=== PATIENT | female | born 1955 | race Caucasian/White ===

== ENCOUNTER 2016-08-05 12:21 | Emergency (ER) | payer SELFPAY ==
[~2016-08-05] VITALS: Ht 157.5 cm; Wt 58.2 kg
[2016-08-05 12:23] VITALS: Ht 157.5 cm; Wt 58.2 kg
--- OUTSIDE RECORDS SUMMARY | 2016-08-05 12:25 | XMS REPORT | Referral Summary ---
Author Author [facility] Organization [facility] Address Unknown Phone Unavailable Care Team Providers Care Fur Blowing Machine Operator Name Role Phone Darleen Guerrero Primary Care Physician [phone] Encounter VC Date(s): 05/31/15 - 05/31/15 [facility] [address] [place] [id number] Discharge Diagnosis: Acute bronchitis Discharge Disposition: 01-Home or Self Care Attending Physician: Karla Gaines PA-C Admitting Physician: Karla Gaines PA-C Vital Signs Most recent to 1 oldest [Reference Range]: Temperature Tympanic 36.0 degC [36.6-38.1 degC] *LOW* (05/31/15 8:56 AM) Peripheral Pulse 84 bpm Rate [60-100 bpm] (05/31/15 8:56 AM) Respiratory Rate 20 br/min [14-20 br/min] (05/31/15 8:56 AM) Blood Pressure 140/86 mmHg [90-140/60-90 mmHg] (05/31/15 8:56 AM) Problem List Condition Effective Dates Status Health Status Informant Dental Active caries(Confirmed) Allergies, Adverse Reactions, Alerts No Known Allergies Medications predniSONE 20 mg oral tablet 40 mg 2 tabs, Oral, Daily, X 5 days, # 10 tabs, 0 Refill(s), Pharmacy: [facility] #[id number], 2 tabs Oral Daily,x5 days Start Date: 05/31/15 Stop Date: 06/05/15 Status: Ordered Robitussin DM To Go mL, Oral, q4hr, 0 Refill(s) Start Date: 05/31/15 Status: Ordered Zithromax Z-Aldair 250 mg oral tablet 1 packets, Oral, Daily, as directed on package labeling, X 5 days, # 6 tabs, 0 Refill(s), Pharmacy: [facility] #[id number], 1 packets Oral Daily,x5 days, Instr:as directed on package labeling Start Date: 05/31/15 Stop Date: 06/05/15 Status: Ordered Results No data available for this section Immunizations Vaccine Date Refusal Reason influenza virus vaccine, inactivated1 02/17/14 1Location History: See scanned document Procedures No data available for this section Social History Social History Type Response Smoking Status Current every day smoker; Type: Cigarettes; Tobacco use per day: Less than Pack Assessment and Plan Extracted from: Title: Ambulatory Patient Education Author: Karla Gaines PA-C Date : 05/31/15 Family Medicine Acute Bronchitis Bronchitis is inflammation of the airways that extend from the windpipe into the lungs (bronchi). The inflammation often causes mucus to develop. This leads to a cough, which is the most common symptom of bronchitis. In acute bronchitis, the condition usually develops suddenly and goes away over time, usually in a couple weeks. Smoking, allergies, and asthma can make bronchitis worse. Repeated episodes of bronchitis may cause further lung problems. CAUSES Acute bronchitis is most often caused by the same virus that causes a cold. The virus can spread from person to person (contagious) through coughing, sneezing, and touching contaminated objects. SIGNS AND SYMPTOMS Cough. Fever. Coughing up mucus. Body aches. Chest congestion. Chills. Shortness of breath. Sore throat. DIAGNOSIS Acute bronchitis is usually diagnosed through a physical exam. Your health care provider will also ask you questions about your medical history. Tests, such as chest X-rays, are sometimes done to rule out other conditions. TREATMENT Acute bronchitis usually goes away in a couple weeks. Oftentimes, no medical treatment is necessary. Medicines are sometimes given for relief of fever or cough. Antibiotic medicines are usually not needed but may be prescribed in certain situations. In some cases, an inhaler may be recommended to help reduce shortness of breath and control the cough. A cool mist vaporizer may also be used to help thin bronchial secretions and make it easier to clear the chest. HOME CARE INSTRUCTIONS Get plenty of rest. Drink enough fluids to keep your urine clear or pale yellow (unless you have a medical condition that requires fluid restriction). Increasing fluids may help thin your respiratory secretions (sputum) and reduce chest congestion, and it will prevent dehydration. Take medicines only as directed by your health care provider. If you were prescribed an antibiotic medicine, finish it all even if you start to feel better. Avoid smoking and secondhand smoke. Exposure to cigarette smoke or irritating chemicals will make bronchitis worse. If you are a smoker, consider using nicotine gum or skin patches to help control withdrawal symptoms. Quitting smoking will help your lungs heal faster. Reduce the chances of another bout of acute bronchitis by washing your hands frequently, avoiding people with cold symptoms, and trying not to touch your hands to your mouth, nose, or eyes. Keep all follow-up visits as directed by your health care provider. SEEK MEDICAL CARE IF: Your symptoms do not improve after 1 week of treatment. SEEK IMMEDIATE MEDICAL CARE IF: You develop an increased fever or chills. You have chest pain. You have severe shortness of breath. You have bloody sputum. You develop dehydration. You faint or repeatedly feel like you are going to pass out. You develop repeated vomiting. You develop a severe headache. MAKE SURE YOU: Understand these instructions. Will watch your condition. Will get help right away if you are not doing well or get worse. Document Released: 06/07/2005 Document Revised: 09/14/2014 Document Reviewed: [facility] [place] Patient Information 2015 [employer]. This information is not intended to replace advice given to you by your health care provider. Make sure you discuss any questions you have with your health care provider. No follow up information was provided. Extracted from: Title: Office Visit Note- URI Author: Karla Gaines PA-C Date: 05/31 Assessment/Plan Acute bronchitis Pt has no insurance, and would like to try and defer CXR today. Will treat as possible pneumonia. Pt given Rocephin 1G IM in clinic today , and will continue with Z-aldair and prednisone x 5 days. Has nebulizer at home, and will do Albuterol treatments 2-3 times per day routinely until SOA improved. She is to call the clinic if not improving. Declined cough Rx, and states the [facility] is working for her at this time. Ordered: Office Visit Level 3 Est 91730 Orders: azithromycin, 1 packets, Oral, Daily, as directed on package labeling , X 5 days, # 6 tabs, 0 Refill(s), Pharmacy: [facility] #[id number], 1 packets Oral Daily,x5 days,Instr:as directed on package labeling predniSONE, 40 mg 2 tabs, Oral, Daily, X 5 days, # 10 tabs, 0 Refill(s), Pharmacy: [facility] #[id number], 2 tabs Oral Daily,x5 days
--- OUTSIDE RECORDS SUMMARY | 2016-08-05 12:25 | XMS REPORT | Referral Summary ---
Author Author [facility] Organization [facility] Address Unknown Phone Unavailable Care Team Providers Care Central Control Room Operator Name Role Phone Darleen Guerrero Primary Care Physician [phone] Encounter VC Date(s): 06/21/16 - 06/21/16 [facility] [address] [place] [id number] Discharge Diagnosis: Anxiety associated with depression Discharge Disposition: 01-Home or Self Care Attending Physician: Chay Guerrero MD Admitting Physician: Chay Guerrero MD Vital Signs Most recent to 1 oldest [Reference Range]: Temperature Tympanic 36.2 degC [36.6-38.1 degC] *LOW* (06/21/16 11:41 AM) Blood Pressure 134/90 mmHg [90-140/60-90 mmHg] (06/21/16 11:41 AM) Problem List Condition Effective Dates Status Health Status Informant Asthma(Confirmed) Active Fractured R Active Wrist(Confirmed) High Active Cholesterol(Confirme d) Cervical 1989 Active Cancer(Confirmed) Dental Active caries(Confirmed) Psoriasis(Confirmed) Active Arthritis-Rheu(Confi Active rmed) Chicken Active Pox(Confirmed) Allergies, Adverse Reactions, Alerts No Known Allergies Medications CeleXA 20 mg oral tablet 20 mg 1 tabs, Oral, Daily, # 90 tabs, 1 Refill(s), Pharmacy: [facility] # [id number], 1 tabs Oral Daily Start Date: 06/21/16 Status: Ordered IBU 800 mg oral tablet 800 mg 1 tabs, Oral, Daily, 0 Refill(s) Start Date: 06/21/16 Status: Ordered Results No data available for this section Immunizations Given and Recorded Vaccine Date Status Refusal Reason influenza virus vaccine, inactivated1 02/17/14 Recorded 1Location History: See scanned document Procedures Procedure Date Related Diagnosis Body Site Oophorectomy 1993 Appendectomy1 1989 Hysterectomy 1989 1incidential with the hystorectomy. See Conversion Document. Social History Social History Type Response Smoking Status Current every day smoker; Type: Cigarettes; Tobacco use per day: Less than Pack Assessment and Plan Extracted from: Title: Ambulatory Patient Education Author: Chay Guerrero MD Date: 06/21 Family Medicine Depression, Adult Depression is feeling sad, low, down in the dumps, blue, gloomy, or empty. In general, there are two kinds of depression: Normal sadness or grief. This can happen after something upsetting. It often goes away on its own within 2 weeks. After losing a loved one (bereavement ), normal sadness and grief may last longer than two weeks. It usually gets better with time. Clinical depression. This kind lasts longer than normal sadness or grief. It keeps you from doing the things you normally do in life. It is often hard to function at home, work, or at school. It may affect your relationships with others. Treatment is often needed. GET HELP RIGHT AWAY IF: You have thoughts about hurting yourself or others. You lose touch with reality (psychotic symptoms). You may: See or hear things that are not real. Have untrue beliefs about your life or people around you. Your medicine is giving you problems. MAKE SURE YOU: Understand these instructions. Will watch your condition. Will get help right away if you are not doing well or get worse. This information is not intended to replace advice given to you by your health care provider. Make sure you discuss any questions you have with your health care provider. Document Released: 06/02/2011 Document Revised: 05/21/2015 Document Reviewed: [employer] Patient Education 2016 [employer] No follow up information was provided. Extracted from: Title: Office Visit Note Author: Chay Guerrero MD Date: 06/21/16 Assessment/Plan 1.Anxiety associated with depression Rx for Celexa 20mg daily and will follow up in 1 month.
[2016-08-05] MEDS ORDERED: CITA40TA14 PO (13:02)
--- NOTE | 2016-08-05 13:02 | ERPDOC ---
Departure Disposition Decision Date: Aug 05, 2016 Disposition Decision Time: 17:02 (SATISH CRUZ APRN) Disposition: 01 DISCHARGED HOME, SELF-CARE Impression Impression (SATISH CRUZ APRN) Impression: Primary Impression: Colitis Additional Impression: Volume depletion Severity: Moderate (SATISH CRUZ APRN) Condition: Improved Seen By: Mid-level only (SATISH CRUZ APRN) Referrals: [facility] Patient Instructions: Colitis (ED) Problems/Meds/Labs Reviewed?: Yes Medications reviewed and manag: Yes (SATISH CRUZ APRN) Additional Instructions: Your CT scan indicated you have a colitis, please see discharge packet. Take Cipro 500 mg twice daily for 7 days. Take metronidazole 500 mg every 8 hours for the next 7 days. You may take Compazine 10 mg every 6 hours as needed for nausea and vomiting. This medication may cause drowsiness so avoid driving or operating heavy machinery or drinking alcohol while taking. Stay well hydrated drink plenty of fluids especially water. Eat foods high in potassium such as bananas, potatoes and spinach. Follow with a PCP of your choice if your symptoms are not improving in the next week. I would suggest trying [facility] said she do not have insurance. Follow up care ordered?: Yes Mental Status: Alert, Oriented (SATISH CRUZ APRN) Scripts Prochlorperazine Maleate (Compazine) 10 Mg Tablet 10 MG PO QID for 7 Days, #28 TAB Take 1 tablet, by mouth, 4 times a day. Prov: SATISH CRUZ APRN 08/05/16 Metronidazole (Metronidazole) 500 Mg Tablet 500 MG PO Q8H for 7 Days, #21 TAB Prov: SATISH CRUZ APRN 08/05/16 Ciprofloxacin HCl (Ciprofloxacin HCl) 500 Mg Tablet 1 TAB PO Q12H for 7 Days, #14 TAB Prov: SATISH CRUZ APRN 08/05/16 HPI - Abdominal Pain General Chief Complaint: Nausea,Vomiting,Diarrhea Stated Complaint: R SIDE ABD PAIN, WEAKNESS, AND VOMITING Time Seen by Provider: 13:00 Source: patient (SATISH CRUZ APRN) Time Seen by Provider: 13:00 (TRISH GASTELUM DO) HPI - Abdominal Pain Initial Comments 61 YO F presents to ED with report of having intermittent nausea, vomiting and diarrhea for past 2-3 weeks. Has not seen anyone because she does not have insurance. Says that generalized abdominal pain has increased over the last 2 days. Patient denies any known sick contacts. States she has never had similar pain. Pain is not exacerbated by eating or movement. Pain Scale: Now: 9/10 Quality: aching, cramping Location: generalized abdomen Associated Symptoms: nausea/vomiting, weakness (generalized), DENIES: back pain , chest pain, diaphoresis, fatigue, fever/chills, headache, heartburn, rash, shortness of breath, swelling/mass in abdomen, syncope (SATISH CRUZ LINING MACHINE TENDER) Allergies: Coded Allergies: No Known Allergies (Unverified , 08/05/16) Past History Past Medical History Metabolic: DENIES: diabetes Cardiac: DENIES: angina Respiratory: DENIES: asthma GI: DENIES: ulcers Female: DENIES: renal insufficiency Neurological: DENIES: seizures Musculoskeletal: DENIES: back pain Psychological: depression (SATISH CRUZ LINING MACHINE TENDER) Surgical History Reproductive/: hysterectomy (SATISH CRUZ APRN) Family History Family PMH: FOUND: other (noncontributory) (SATISH CRUZ APRN) Social History Smoking Status: Current every day smoker (1/2 PPD) Marital Status: Sexuality: male partner (SATISH CRUZ APRN) Review of Systems Constitutional Constitutional: weakness (generalized), DENIES: chills, dizziness, fever ( SATISH CRUZ LINING MACHINE TENDER) Eyes General: DENIES: erythema, exudate Lids/Accessories: DENIES: erythema, swelling (SATISH CRUZ LINING MACHINE TENDER) ENMT Ears: DENIES: pain Hearing: DENIES: hearing loss Sinuses: DENIES: congestion, rhinorrhea Mouth/Throat: DENIES: sore throat (KHALIF CRUZS A LINING MACHINE TENDER) Cardiovascular Cardiac: DENIES: chest pain, murmur Rhythm/Rate: DENIES: palpitations (SATISH CRUZ A LINING MACHINE TENDER) Pulmonary Respiratory: DENIES: cough, dyspnea (SATISH CRUZ A LINING MACHINE TENDER) GI Upper Abdomen: nausea, pain, vomiting Lower Abdomen: diarrhea, pain, DENIES: blood in stool (SATISH CRUZ A LINING MACHINE TENDER) General: DENIES: dysuria, pain (SATISH CRUZ LINING MACHINE TENDER) Musculoskeletal General: DENIES: joint pain, pain, tenderness (CRUZ,SATISH A LINING MACHINE TENDER) Integumentary Skin: DENIES: color change, itching, rash (KHALIF CRUZS A LINING MACHINE TENDER) Neurological General: DENIES: ataxia, change in strength, numbness, paralysis/paresis, weakness (KHALIF CRUZS A LINING MACHINE TENDER) Psychiatric Psychiatric: depression, DENIES: anxiety, nervousness (KHALIF CRUZS A LINING MACHINE TENDER) Physical Exam General General Nourishment: well nourished, well developed, adult General Body Habitus: well groomed (KHALIF CRUZS A LINING MACHINE TENDER) Vitals and Pain First Documented Vital Signs Date Time Temp Pulse Resp B/P Pulse Ox O2 Delivery O2 Flow Rate FiO2 08/05/16 12:23 98.0 96 18 135/65 99 Room Air (TRISH GASTELUM DO) Vitals and Pain Weight: Kilograms: 58.200 Height (feet): 5 Height (inches): 2.00 Triage Pain Scale: (KHALIF CRUZS A LINING MACHINE TENDER) Eyes (brief) Eyes Brief: found: EOMI, PERRL (KHALIF CRUZS A LINING MACHINE TENDER) ENMT (brief) ENMT Brief: FOUND: TM clear, TM good light reflex, mucosa moist, NOT FOUND: nasal exudate, nasal swelling, pharnyx erythema (KHALIF CRUZS A LINING MACHINE TENDER) Neck (brief) Neck: FOUND: trachea midline, NOT FOUND: adenopathy, spasm, tenderness, thyromegaly (CRUZSATISH A LINING MACHINE TENDER) Respiratory (brief) Respiratory: FOUND: clear all schwab, equal bilaterally, symmetrical (CRUZ, SATISH A LINING MACHINE TENDER) Cardiovascular (brief) Cardiac: FOUND: regular rate, regular rhythm (NANCYSATISH A LINING MACHINE TENDER) Abdomen Inspection: NOT FOUND: distention Palpation: FOUND: soft, tender (mild diffuse TTP), NOT FOUND: McBurney's point tender, Psoas sign, Rosving's sign, hepatomegaly, involuntary guarding, splenomegaly, voluntary guarding Auscultation: FOUND: normoactive (x4) (KHALIF CRUZS A LINING MACHINE TENDER) Musculoskeletal (brief) Musculoskeletal Brief: NOT FOUND: deformity, tenderness (CRUZSATISH A LINING MACHINE TENDER) Integumentary (brief) Integumentary Brief: FOUND: dry, pink, warm (CRUZKHALIFS A LINING MACHINE TENDER) Neurologic (brief) Neurological Brief: FOUND: CN w/o gross def to obs, motor-no gross deficits, sensory-no gross deficits (SATISH CRUZ APRN) Psychiatric (brief) Psychiatric Brief: FOUND: alert, normal affect, oriented (SATISH CRUZ APRN ) Differential Diagnoses Considering: C-Difficule Colitis, Dehydration, Food Poisoning, Gastroenteritis , Hypokalemia, Pancreatitis, Viral Syndrome (SATISH CRUZ APRN) Progress Results/Orders Orders Procedure Category Date Status Time Iv Lock (Ed Only) EDM 08/05/16 Transmitted 13:12 Nothing By Mouth (Ed EDM 08/05/16 Transmitted Only) 13:12 Cbc W/Auto LAB 08/05/16 Complete Diff-Reflex Manual 13:12 Cmp - Comprehensive LAB 08/05/16 Complete Metabolic 13:12 Lipase LAB 08/05/16 Complete 13:12 Prochlorperazine PHA 08/05/16 Complete (Compazine) 13:15 Normal Saline (Normal PHA 08/05/16 Complete Saline Iv) 13:15 Ct Abd/Pelvis CT 08/05/16 Resulted W/Contrast Only Lactate - Lactic Acid LAB 08/05/16 Complete Procalcitonin LAB 08/05/16 Complete Blood Culture TYLER 08/05/16 In Process Normal Saline (Normal PHA 08/05/16 Complete Saline Iv) 14:15 UA, LAB 08/05/16 Complete Dip&Micro(Complete) & 14:22 Iohexol (Omnipaque) PHA 08/05/16 Complete 14:29 Normal Saline (Ns) PHA 08/05/16 Complete 14:29 Saline Flush (Iv PHA 08/05/16 Complete Flush) 14:29 Hydromorphone PHA 08/05/16 Complete (Dilaudid) 15:00 (TRISH GASTELUM DO) Lab Results Laboratory Tests Test 08/05/16 13:33 08/05/16 14:22 08/05/16 14:52 White Blood Count 17.2T/MM3 Red Blood Count 4.16M/MM3 Hemoglobin 12.6GM/DL Hematocrit 36.2% Mean Corpuscular Volume 87.0UM3 Mean Corpuscular Hemoglobin 30.3UUG Mean Corpuscular Hemoglobin Concent 34.8GM/DL RDW Standard Deviation 41.0FL Platelet Count 377T/MM3 Mean Platelet Volume 10.1UM3 Immature Granulocyte % (Auto) % Neutrophils (%) (Auto) % Lymphocytes (%) (Auto) % Monocytes (%) (Auto) % Eosinophils (%) (Auto) % Basophils (%) (Auto) % Absolute Immature Granulocyte (auto T/MM3 Absolute Neutrophils (auto) T/MM3 Absolute Lymphocytes (auto) T/MM3 Absolute Monocytes (auto) T/MM3 Absolute Eosinophils (auto) T/MM3 Absolute Basophils (auto) T/MM3 Neutrophils % (Manual) 88.0% Band Neutrophils % 9.0% Lymphocytes % (Manual) 3.0% Absolute Neutrophils (Manual) 15.1T/MM3 Band Neutrophils # 1.5T/MM3 Lymphocytes # (Manual) 0.5T/MM3 Red Cell Morphology Comment Normal Turbidity < 20 Sodium Level 133MEQ/L Potassium Level 4.2MEQ/L Chloride Level 102MEQ/L Carbon Dioxide Level 17MEQ/L Anion Gap 14MEQ/L Blood Urea Nitrogen 20.0MG/DL Creatinine 0.8MG/DL Glomerular Filtration Rate Calc 73 BUN/Creatinine Ratio 25RATIO Glucose Level 213MG/DL Calculated Osmolality 265MOSM/KG Calcium Level 9.1MG/DL Total Bilirubin 0.90MG/DL Icterus Index < 2 Aspartate Amino Transf (AST/SGOT) 20U/L Alanine Aminotransferase (ALT/SGPT) 23U/L Alkaline Phosphatase 112U/L Total Protein 6.6G/DL Albumin 3.4G/DL Globulin 3.2G/DL Albumin/Globulin Ratio 1.1RATIO Lipase 65U/L Chemistry Specimen Hemolysis < 15 Urine Collection Type Voided-not cc-midstr Urine Color Yellow Urine Turbidity Clear Urine pH 5.5 Urine Specific [place] <=1.005 Urine Protein Negative Urine Glucose (UA) Negative Urine Ketones 2+ Urine Blood Trace-intact Urine Nitrite Negative Urine Bilirubin Negative Urine Urobilinogen 0.2EU/DL Urine Leukocyte Esterase 1+ Urine RBC None seen/HPF Urine WBC 1-3/HPF Urine Squamous Epithelial Cells 5-10 Urine Bacteria Trace Urine Culture Indicated Cult not indicated Plasma Lactate 0.8MMOL/L Procalcitonin 0.11NG/ML (TRISH GASTELUM DO) Medications Current ED Medications Prochlorperazine Edisylate 10 mg 10 mg O ONCE IV Last administered on t 13:28; Start 08/05/16 at 13:15; Stop 3/25/17 at 13:16; Status DC Sodium Chloride 1,000 ml @ 0 mls/hr Q0M ONCE IV Last administered on 13:28; Start 08/05/16 at 13:15; Stop 08/05/16 at 13:16; Status DC Sodium Chloride (Normal Saline IV) 1,000 ml @ 500 mls/hr Q2H ONCE IV Last administered on 08/05/16 14:31; Start 08/05/16 at 14:15; Stop 08/05/16 at 16:14 ; Status DC Iohexol 1 bottle 1 bottle STK-MED ONCE .ROUTE ; Start 08/05/16 at 14:29; Stop at 14:30; Status DC Sodium Chloride (NS) 100 ml @ As Directed STK-MED ONCE .ROUTE ; Start 08/05/16 at 14:29; Stop 08/05/16 at 14:30; Status DC Sodium Chloride (Iv Flush) 10 ml STK-MED ONCE .ROUTE ; Start 08/05/16 at 14:29; Stop 08/05/16 at 14:30; Status DC Hydromorphone HCl (Dilaudid) 0.5 mg O ONCE IV Last administered on 08/05/16 16:14; Start 08/05/16 at 15:00; Stop 08/05/16 at 15:01; Status DC (TRISH GASTELUM DO) Progress Progress Patient has improvement of pain from 9/10 to 5/10 with IV compazine. WBC 17.2 (no bandemia) K 4.2 Co2 17, BUN 20 with 2+ ketones in urine consistent with dehydration Lipase WNL Lactate 0.8 Procal 0.11 Patient is feeling much better after fluids and dialudid. I discussed labs and CT results with patient (including incidental findings), and answered question. Patient states she wants to go home. Does not want to be admitted to the hospital. Patient verbalized understanding of treatment plan, follow up with PCP and return precautions. (SATISH CRUZ APRN) CT CT : CT: Abd/Pelvis IV contrast (coliitis, right renal cyst, adrenal nodule and cystic lesion on spleen) Interpretation: Abnormal, Faxed Report (SATISH CRUZ APRN) SATISH CRUZ APRN Aug 05, 2016 13:02 TRISH GASTELUM DO Aug 09, 2016 06:42
--- NOTE | 2016-08-05 13:08 | NUR ---
PROVIDER Brenda CRUZ APRN AT BEDSIDE.
[2016-08-05] MEDS ORDERED: PROCHLORPERAZINE 10mg/2ml INJECTION IV ONE (13:15)
[2016-08-05] MEDS ORDERED: NORMAL SALINE 1,000 ML IV ONE ×2 (13:15→14:15)
[2016-08-05 13:48] LABS: HCT - HEMATOCRIT 36.2 % (36-46); HGB - HEMOGLOBIN 12.6 GM/DL (12-16); MEAN CORPUSCULAR HGB 30.3 UUG (26-34); MEAN CORPUSCULAR HGB CONC(MCHC 34.8 GM/DL (31-37); MEAN PLATELET VOLUME 10.1 UM3 (9.4-12.4); RED BLOOD COUNT 4.16 M/MM3 (4.00-5.20); WBC - WHITE BLOOD COUNT 17.2 T/MM3 (4.5-11.0)
--- NOTE | 2016-08-05 13:48 | NUR ---
STATUS PT APPEARS TO BE RESTING COMFORTABLY WITH EYES CLOSED. REPORTS DECREASE IN PAIN TO 6/10 AFTER COMPAZINE ADM. DENIES FURTHER NEEDS AT THIS TIME. CALL LIGHT WITHIN REACH, WILL CONTINUE TO MONITOR.
[2016-08-05 13:55] LABS: ALBUMIN 3.4 G/DL (3.5-5.0); ALBUMIN/GLOBULIN RATIO 1.1 RATIO (1.1-2.2); ALKALINE PHOSPHATASE 112 U/L (38-126); ALT (SGPT) 23 U/L (9-52); ANION GAP 14 MEQ/L (5-15); AST (SGOT) 20 U/L (14-36); BUN/CREATININE RATIO 25 RATIO (6-26); CALCIUM 9.1 MG/DL (8.4-10.2); CHLORIDE 102 MEQ/L (98-107); CO2 - CARBON DIOXIDE 17 MEQ/L (22-30); CREATININE 0.8 MG/DL (0.7-1.2); GLOMERULAR FILTRATION RATE 73; GLUCOSE 213 MG/DL (65-110); POTASSIUM 4.2 MEQ/L (3.6-5); SODIUM 133 MEQ/L (134-144); TOTAL PROTEIN 6.6 G/DL (6.3-8.2)
[2016-08-05 13:59] LABS: BAND NEUTROPHILS # 1.5 T/MM3; LYMPHOCYTES # (MANUAL) 0.5 T/MM3 (1-4.8); NEUTROPHILS #(MANUAL)-ABSOLUTE 15.1 T/MM3 (1.8-7.7)
[2016-08-05 14:14] LABS: LIPASE 65 U/L (23-300)
--- NOTE | 2016-08-05 14:17 | NUR ---
ELIMINATION PT UP TO BSC TO VOID. WILL COLLECT UA
[2016-08-05 14:28] LABS: BLOOD, URINE TRACE-INTACT (NEGATIVE); COLOR,URINE YELLOW (YELLOW); LEUKOCYTE ESTERASE ,URINE 1+ (NEGATIVE); NITRITE,URINE NEGATIVE (NEGATIVE); UROBILINOGEN,URINE 0.2 EU/DL (NORMAL)
[2016-08-05] MEDS ORDERED: SALINE FLUSH 10ml SYRINGE ONE (14:29)
[2016-08-05] MEDS ORDERED: IOHEXOL 300 MG/ML 75ml INJECTION ONE (14:29)
[2016-08-05] MEDS ORDERED: NORMAL SALINE 100 ML ONE (14:29)
[2016-08-05 14:34] LABS: BACTERIA,URINE TRACE (NEGATIVE); RBC,URINE NONE SEEN /HPF (0-3)
--- NOTE | 2016-08-05 14:43 | NUR ---
LAB AT BEDSIDE FOR BLOOD CULTURES.
[2016-08-05] MEDS ORDERED: HYDROMORPHONE 2mg/ml INJECTION IV ONE (15:00)
--- NOTE | 2016-08-05 15:05 | NUR ---
CT PT TO CT BY CART AT THIS TIME.
--- NOTE | 2016-08-05 15:19 | NUR ---
RETURN PT RETURNED FROM CT BY CART AT THIS TIME.
--- NOTE | 2016-08-05 15:55 | NUR ---
IVL 20G TO R HAND NO LONGER FLUSHING OR DRAWING BLOOD AFTER RETURNING FROM RADIOLOGY. SITE DC'D.
--- NOTE | 2016-08-05 16:44 | NUR ---
STATUS PT RESTING COMFORTABLY IN CART. REPORTS FEELS "REAL RELAXED" AFTER DILAUDID ADM. DENIES FURTHER NEEDS. CALL LIGHT WITHIN REACH. VS STABLE, WILL CONTINUE TO MONITOR.
[2016-08-05] MEDS ORDERED: CIPR-280 PO (17:06)
[2016-08-05] MEDS ORDERED: METR-116 PO (17:06)
[2016-08-05] MEDS ORDERED: PROC-14 PO (17:06)
[2016-08-05 17:36] VITALS: BP 118/64; PULSE 80; RESP 14; TEMP 98; O2SAT 95
--- NOTE | 2016-08-05 17:36 | NUR ---
DISCHARGE WRITTEN INSTRUCTIONS WITH COMPAZINE, FLAGYL, AND CIPRO RX REVIEWED AND SENT WITH PT. PT VERBALIZES UNDERSTANDING OF DI AND MEDICATIONS, DENIES QUESTIONS. REPORTS ABDOMINAL PAIN IS "SO MUCH BETTER" AT 3-08/21. PT AMBULATES OUT OF ED WITH STEADY GAIT TO LOBBY TO MEET DAUGHTER AT THIS TIME.
--- NOTE | 2016-08-06 09:08 | DI ---
Indication: ITS.REASON: Epigastric, RUQ pain and bilateral lower abdominal pain PROCEDURE: CT ABD/PELVIS W/CONTRAST ONLY: Encounter: Initial Comparison: None Technique: Axial CT images were performed through the abdomen and pelvis after the administration of intravenous contrast. Coronal and sagittal two-dimensional reformats. Automated Exposure Control and Iterative Reconstruction dose reducing techniques were utilized. Contrast: Omnipaque 300 100 mL Findings: The lung bases are clear. The liver is normal. The gallbladder, pancreas and right adrenal gland are normal. Low-attenuation lesion in the left adrenal gland possibly representing an adenoma although indeterminate on this study measuring 1.1 cm in diameter on axial image #19. Irregular cystic focus in the anterior aspect of the spleen measuring 3 cm in diameter on axial image #21. Small benign-appearing cyst noted in the right kidney. The kidneys are otherwise normal. No abdominal or pelvic lymphadenopathy. Bladder is thick walled but decompressed. Uterus is absent. There is wall thickening seen within the colon fairly diffusely involving nearly the entire length of the colon. No evidence of obstruction. Bone windows are unremarkable. Appendix is not seen but there are no inflammatory changes near its expected location to suggest an acute appendicitis. Impression: 1. Diffuse colitis could be infectious or inflammatory. 2. Probably benign cystic lesion within the spleen. 3. Indeterminate left adrenal nodule. Adrenal protocol CT or MRI could be performed for further evaluation. There is a preliminary report by [employer]. .
== END 2016-08-05 17:36 | disposition home or self-care (01) ==
LOC: ED 12:21
DX: K52.9 Noninfective gastroenteritis and colitis, unspecified (principal); E86.9 Volume depletion, unspecified
CPT/HCPCS: 36415; 80053; 81001; 83605; 83690; 84145; 85025; 87040